=== PATIENT | female | born 1955 ===

== ENCOUNTER 2021-01-30 13:45 | Outpatient (CLI) | payer OTHER | END 2021-01-30 13:47 | disposition home or self-care (01) | LOC: EDBD 13:45 → NUCLEAR 13:45 | PROVIDERS: ATTEND Orthopaedic Surgery | DX: M81.0 Age-related osteoporosis without current pathological fracture (principal) ==

== ENCOUNTER → 2021-02-10 12:25 | Outpatient (CLI) | payer OTHER | END | disposition home or self-care (01) | LOC: LAB 12:25 → RAD 12:25 | PROVIDERS: ATTEND Orthopaedic Surgery | DX: D64.9 Anemia, unspecified (principal); M06.4 Inflammatory polyarthropathy; E55.9 Vitamin D deficiency, unspecified; M85.9 Disorder of bone density and structure, unspecified; E21.3 Hyperparathyroidism, unspecified; M81.8 Other osteoporosis without current pathological fracture; E56.1 Deficiency of vitamin K; M79.652 Pain in left thigh; Z96.642 Presence of left artificial hip joint; E88.89 Other specified metabolic disorders ==